=== PATIENT | female | born 1995 | race Caucasian/White ===

== ENCOUNTER 2021-04-23 07:40 | Inpatient (IN) | payer OTHER, MEDICAID ==
[~2021-04-23] VITALS: Ht 160 cm; Wt 83.9 kg
[2021-04-23] MEDS ORDERED: DEXT 5%/LR + PITOCIN 20UNITS/L 1,000 ML IV SCH ×2 (08:30→16:30)
[2021-04-23] MEDS ORDERED: METHYLERGONOVINE MALEATE 0.2 MG/ML IM PRN (08:30)
[2021-04-23 09:44] LABS: BASOPHILS % 0.6 % (0.0-2.0); EOSINOPHILS % 2.1 % (0.0-5.0); HEMATOCRIT. 34.9 % (36.0-48.0); HEMOGLOBIN. 12.2 g/dL (12.0-16.0); LYMPHOCYTES % 18.9 % (20.0-50.0); MEAN CORPUSCULAR HEMOGLOBIN 30.1 pg (28.0-32.0); MEAN CORPUSCULAR VOLUME 86.5 fL (81.0-99.0); MEAN PLATELET VOLUME 8.7 fl (7.4-10.4); MONOCYTES % 9.8 % (2.0-8.0); NEUTROPHILS % 68.6 % (40.0-76.0); PLATELET 187 x1000/uL (130-400); RED BLOOD CELL COUNT 4.04 mill/uL (4.2-5.4); RED CELL DISTRIBUTION WIDTH 14.2 % (11.6-14.6)
[2021-04-23 09:52] LABS: PARTIAL THROMBOPLASTIN TIME 30.2 sec (23.4-31.0); PROTHROMBIN TIME 10.4 sec (9.6-11.0)
[2021-04-23 10:01] LABS: CLARITY URINE CLOUDY (CLEAR); COLOR URINE YELLOW (YELLOW); KETONES URINE NEGATIVE (NEGATIVE); LEUKOCYTE ESTERASE URINE 2+ (NEGATIVE); NITRITE URINE NEGATIVE (NEGATIVE); OCCULT BLOOD URINE NEGATIVE (NEGATIVE); PH URINE 7.5 (4.5-8.0); PROTEIN URINE NEGATIVE (NEGATIVE); SPECIFIC GRAVITY URINE 1.019 (1.005-1.030)
[2021-04-23] MEDS ORDERED: CITRIC ACID/SODIUM CITRATE SOLN 30ML UDC PO SCH (10:15)
[2021-04-23 10:28] LABS: *AMPHETAMINES SCREEN URINE NEGATIVE (NEGATIVE); *BARBITURATES SCREEN URINE NEGATIVE (NEGATIVE); *BENZODIAZEPINES SCREEN URINE NEGATIVE (NEGATIVE); *COCAINE SCREEN URINE NEGATIVE (NEGATIVE); METHADONE URINE SCREEN NEGATIVE (NEGATIVE)
[2021-04-23 10:29] LABS: CANNABINOID URINE SCREEN NEGATIVE (NEGATIVE); OPIATES URINE SCREEN NEGATIVE (NEGATIVE); PHENCYCLIDINE URINE SCREEN NEGATIVE (NEGATIVE)
[2021-04-23] MEDS ORDERED: PHENYLEPHRINE HCL 10 MG/ML 1ML (IV VIAL) IV ONE (10:49)
[2021-04-23] MEDS ORDERED: OXYTOCIN 10 UNITS/ML 1ML ONE ×2 (10:49→12:00)
[2021-04-23] MEDS ORDERED: MORPHINE SULFATE/PF 1MG/ML 10ML AMP ONE (10:49)
[2021-04-23] MEDS ORDERED: FENTANYL CITRATE/PF 50MCG/ML 2ML VIAL ONE (10:49)
[2021-04-23] MEDS ORDERED: EPHEDRINE SULFATE 50MG/ML VIAL ONE (10:49)
[2021-04-23] MEDS ORDERED: ONDANSETRON HCL 4MG/2ML INJ ONE ×2 (10:49→11:23)
[2021-04-23] MEDS ORDERED: CEFAZOLIN SODIUM 1000MG/VIAL ONE (10:49)
[2021-04-23] MEDS: LACTATED RINGERS 1,000 ML IV SCH ×2 (10:58→11:01)
[2021-04-23 11:40] LABS: HEPATITIS B SURFACE ANTIGEN NEGATIVE
[2021-04-23] MEDS ORDERED: DIPHENHYDRAMINE 50MG/ML VIAL ONE (11:50)
[2021-04-23] MEDS ORDERED: KETOROLAC 60MG/2ML VIAL IM ONE (11:50)
[2021-04-23] MEDS ORDERED: NALOXONE HCL 0.4 MG/ML 1ML VIAL IV PRN (12:00)
[2021-04-23] MEDS ORDERED: BUTORPHANOL TARTRATE 2 MG/ML VIAL IV PRN (12:00)
[2021-04-23 15:35] VITALS: BP 102/50
[2021-04-23 16:20] VITALS: BP 95/61
[2021-04-23] MEDS ORDERED: RHO(D) IMMUNE GLOBULIN 300 MCG/SYR IM PRN (16:30)
[2021-04-23] MEDS ORDERED: LANOLIN OINT 7GM TUBE TOP PRN (16:30)
[2021-04-23] MEDS ORDERED: ONDANSETRON HCL 4MG/2ML INJ IV PRN (16:30)
[2021-04-23] MEDS ORDERED: NALOXONE HCL 0.4MG/ML VIAL IV PRN (16:30)
[2021-04-23] MEDS ORDERED: HYDROCODONE/ACETAMINOPHEN 5/325MG TABLET PO PRN (16:30)
[2021-04-23] MEDS ORDERED: ACETAMINOPHEN WITH CODEINE 300/30MG TABLET PO PRN (16:30)
[2021-04-23] MEDS: DIPHENHYDRAMINE 50MG/ML VIAL IV PRN ×2 (17:17→23:32)
[2021-04-23] MEDS: KETOROLAC 30MG/ML VIAL IV SCH ×2 (18:00→21:25)
[2021-04-23 19:30] VITALS: BP 110/70
[2021-04-23] MEDS ORDERED: DOCUSATE SODIUM 100MG CAPSULE PO SCH (21:00)
[2021-04-23 23:30] VITALS: BP 112/72
[2021-04-24 04:36] VITALS: BP 115/75
[2021-04-24] MEDS: IBUPROFEN 400MG TABLET PO PRN ×2 (06:55→22:10)
[2021-04-24 07:30] VITALS: BP 93/50
[2021-04-24 07:49] LABS: BASOPHILS % 0.5 % (0.0-2.0); EOSINOPHILS % 2.4 % (0.0-5.0); HEMATOCRIT. 30.3 % (36.0-48.0); HEMOGLOBIN. 10.5 g/dL (12.0-16.0); LYMPHOCYTES % 15.1 % (20.0-50.0); MEAN CORPUSCULAR HEMOGLOBIN 30.2 pg (28.0-32.0); MEAN CORPUSCULAR VOLUME 87.3 fL (81.0-99.0); MEAN PLATELET VOLUME 8.9 fl (7.4-10.4); MONOCYTES % 8.8 % (2.0-8.0); NEUTROPHILS % 73.2 % (40.0-76.0); PLATELET 159 x1000/uL (130-400); RED BLOOD CELL COUNT 3.47 mill/uL (4.2-5.4); RED CELL DISTRIBUTION WIDTH 14.5 % (11.6-14.6)
[2021-04-24] MEDS ORDERED: PRENATAL VIT/FE FUMARATE/FA TABLET PO SCH (09:00)
[2021-04-24 16:20] VITALS: BP 92/51
[2021-04-24 20:00] VITALS: BP 109/56
[2021-04-25 04:00] VITALS: BP 98/56
[2021-04-25 07:30] VITALS: BP 116/76
[2021-04-25 14:08] VITALS: BP 116/76
[2021-04-25] MEDS: IBUPROFEN 400MG TABLET PO PRN (14:08)
== END 2021-04-25 15:45 | disposition home or self-care (01) | DRG 788 ==
LOC: OBSVTOIN 07:40 → 8 EST LDRP 07:40 → 8EST 15:37
PROVIDERS: ADMIT Obstetrics & Gynecology; ATTEND Obstetrics & Gynecology
PROC: 10D00Z1 Extraction of Products of Conception, Low, Open Approach (ICD-10-PCS; principal; 2021-04-23)
DX: O34.211 Maternal care for low transverse scar from previous cesarean delivery (principal); Z20.822 Contact with and (suspected) exposure to COVID-19; O99.02 Anemia complicating childbirth; Z37.0 Single live birth; Z3A.39 39 weeks gestation of pregnancy
CPT/HCPCS: 36415; 80305; 81003; 85025; 86592; 86762; 86850; 86900; 87340; 87426; 88307; 99281; J0690; J1200; J1885; J2274; J2370; J2405; J2590; J3010; J3490; J7120